=== PATIENT | female | born 1970 | race Hispanic/Latino ===

== ENCOUNTER 2018-09-28 17:06 | Emergency (ER) | payer OTHER ==
--- NOTE | 2018-09-28 17:57 | Emergency Department Report ---
Blank Doc - Documentation Documentation: 48 y o female presents cc of left shoulder to arm pain x couple of days states hasnt taken her BP meds for a while and went to [facility] today and noticed it was high unsure if pain is related to sleeping on it or htn related denies chestpain hx of stage 2 CKD
--- NOTE | 2018-09-28 19:07 | XRay Report ---
PROCEDURE: XR CHEST ROUTINE 2V TECHNIQUE: PA and lateral chest radiographs were obtained. HISTORY: cp COMPARISONS: None. FINDINGS: Heart: Normal. Mediastinum/Vessels: Normal. Lungs/Pleural space: Normal. Bony thorax: No acute osseous abnormality. IMPRESSION: Normal examination. This document is electronically signed by Chase Robles MD., September 28 2018 07:05:10 PM ET
[2018-09-28 20:00] LABS: Basophils % (Auto) 0.5 % (0.0-1.8); Eosinophils # (Auto) 0.4 K/mm3 (0.0-0.4); Eosinophils % (Auto) 4.4 % (0.0-4.3); Lymphocytes # (Auto) 2.6 K/mm3 (1.2-5.4); Lymphocytes % (Auto) 29.3 % (13.4-35.0); Mean Corpuscular HGB Conc 37 % (30-34); Mean Corpuscular Volume 96 fl (79-97); Monocytes # (Auto) 0.6 K/mm3 (0.0-0.8); Monocytes % (Auto) 7.2 % (0.0-7.3); Platelet Count 250 K/mm3 (140-440); Red Blood Count 4.28 M/mm3 (3.65-5.03); Red Cell Distribution Width 12.8 % (13.2-15.2)
[2018-09-28] MEDS ORDERED: CATAPRES PO ONE ×2 (20:10→21:04)
[2018-09-28 20:12] LABS: BUN/Creatinine Ratio 17; Blood Urea Nitrogen 12 mg/dL (7-17); Calcium 9.5 mg/dL (8.4-10.2); Hemolysis Index 2
[2018-09-28 20:13] LABS: Hematocrit 41.2 % (30.3-42.9); Hemoglobin 15.1 gm/dl (10.1-14.3)
--- NOTE | 2018-09-28 20:22 | Emergency Department Report ---
ED General Adult HPI - General Chief complaint: High BP Stated complaint: HTN Time Seen by Provider: 09/28/18 17:55 Source: patient Mode of arrival: Ambulatory Limitations: No Limitations - History of Present Illness Initial comments: This is a 38-year-old female nontoxic, well nourished in appearance, no acute signs of distress presents to the ED with c/o o acute on chronic intermittent right foot pain from RA as well as hypertension medication refill. Patient takes losartan/HCTZ and meloxicam. The patient denies any headache, stiff neck, nausea, vomiting, chest pain, shortness of breath, numbness, tingling, neck pain. The patient denies any allergies. Denies any trauma. -: days(s) Radiation: non-radiation Severity scale (0 -10): 3 Quality: aching Consistency: constant Improves with: none Worsens with: none Associated Symptoms: denies: confusion, chest pain, cough, diaphoresis, fever/chills, headaches, loss of appetite, malaise, nausea/vomiting, rash, seizure, shortness of breath, syncope, weakness Treatments Prior to Arrival: none - Related Data Previous Rx's Medication Instructions Recorded Last Taken Type HYDROcodone/APAP 5-325 [[place] 1 each PO Q6HR PRN #20 tablet 11/11/13 Unknown Rx 5/325] Penicillin Vk [Veetids TAB] 500 mg PO QID #40 tablet 11/11/13 Unknown Rx Losartan/Hydrochlorothiazide 1 each PO DAILY #30 tablet 09/28/18 Unknown Rx [Losartan-Hctz 50-12.5 mg Tab] Meloxicam [Mobic] 15 mg PO Q8H PRN #10 tablet 09/28/18 Unknown Rx Allergies Allergy/AdvReac Type Severity Reaction Status Date / Time No Known Allergies Allergy Unverified 11/11/13 15:42 ED Review of Systems ROS: Stated complaint: HTN Other details as noted in HPI Constitutional: denies: chills, fever Eyes: denies: eye pain, eye discharge, vision change ENT: denies: ear pain, throat pain Respiratory: denies: cough, shortness of breath, wheezing Cardiovascular: denies: chest pain, palpitations Endocrine: no symptoms reported Gastrointestinal: denies: abdominal pain, nausea, diarrhea Genitourinary: denies: urgency, dysuria, discharge Musculoskeletal: arthralgia. denies: back pain, joint swelling Skin: denies: rash, lesions Neurological: denies: headache, weakness, paresthesias Psychiatric: denies: anxiety, depression Hematological/Lymphatic: denies: easy bleeding, easy bruising ED Past Medical Hx - Past Medical History Previous Medical History?: Yes Hx Hypertension: Yes Hx Deep Vein Thrombosis: Yes (IVC filter) Hx Renal Disease: Yes (Stage 2) Hx Arthritis: Yes Additional medical history: RA - Surgical History Past Surgical History?: Yes Additional Surgical History: IVC filter. elbow surgery - Social History Smoking Status: Former Smoker Substance Use Type: Alcohol - Medications Home Medications: Home Medications Medication Instructions Recorded Confirmed Last Taken Type HYDROcodone/APAP 5-325 [[place] 1 each PO Q6HR PRN #20 tablet 11/11/13 Unknown Rx 5/325] Penicillin Vk [Veetids TAB] 500 mg PO QID #40 tablet 11/11/13 Unknown Rx Losartan/Hydrochlorothiazide 1 each PO DAILY #30 tablet 09/28/18 Unknown Rx [Losartan-Hctz 50-12.5 mg Tab] Meloxicam [Mobic] 15 mg PO Q8H PRN #10 tablet 09/28/18 Unknown Rx ED Physical Exam - General Limitations: No Limitations General appearance: alert, in no apparent distress - Head Head exam: Present: atraumatic, normocephalic - Eye Eye exam: Present: normal appearance - Neck Neck exam: Present: normal inspection, full ROM. Absent: tenderness, meningismus, lymphadenopathy - Respiratory Respiratory exam: Present: normal lung sounds bilaterally. Absent: respiratory distress, wheezes, rales, rhonchi, stridor, chest wall tenderness, accessory muscle use, decreased breath sounds, prolonged expiratory - Cardiovascular Cardiovascular Exam: Present: regular rate, normal rhythm, normal heart sounds. Absent: irregular rhythm, systolic murmur, diastolic murmur, rubs, gallop - Extremities Exam Extremities exam: Present: normal inspection, full ROM, normal capillary refill. Absent: tenderness, joint swelling, calf tenderness - Back Exam Back exam: Present: normal inspection, full ROM - Neurological Exam Neurological exam: Present: alert, oriented X3, normal gait - Psychiatric Psychiatric exam: Present: normal affect, normal mood - Skin Skin exam: Present: warm, dry, intact, normal color. Absent: rash ED Course Vital Signs 09/28/18 09/28/18 17:55 19:29 Temperature 97.5 F L Pulse Rate 57 L 52 L Respiratory 20 Rate Blood Pressure 208/97 Blood Pressure 203/86 [Left] O2 Sat by Pulse 99 Oximetry - Reevaluation(s) Reevaluation #1: 09/28/18 20:21 Patient is speaking in full sentences with no signs of distress noted. ED Medical Decision Making - Lab Data Result diagrams: 09/28/18 19:31 09/28/18 19:31 - Medical Decision Making This is a 48-year-old female who presents with hypertension and arthralgia. Patient is stable and was examined by me. Laboratory are unremarkable. Patient did receive an Norvasc and blood pressure has decreased prior to discharge. Patient was educated to keep a daily diary of blood pressure and presents a primary care doctor. I will refill patient's medication. Patient was instructed to Follow-up with a primary care doctor in 3-5 days or if symptoms worsen and continue return to emergency room as soon as possible. At time of discharge, the patient does not seem toxic or ill in appearance. No acute signs of distress noted. Patient agrees to discharge treatment plan of care. No further questions noted by the patient. Critical care attestation.: If time is entered above; I have spent that time in minutes in the direct care of this critically ill patient, excluding procedure time. ED Disposition Clinical Impression: Hypertension Qualifiers: Hypertension type: unspecified Qualified Code(s): I10 - Essential (primary) hyp ertension Arthralgia Qualifiers: Joint pain location: unspecified Qualified Code(s): M25.50 - Pain in unspecified joint Disposition: DC-01 TO HOME OR SELFCARE Is pt being admited?: No Does the pt Need Aspirin: No Condition: Stable Instructions: Hypertension (ED) Additional Instructions: Follow-up with a primary care doctor in 3-5 days or if symptoms worsen and c ontinue return to emergency room as soon as possible. Prescriptions: Losartan/Hydrochlorothiazide [Losartan-Hctz 50-12.5 mg Tab] 1 each PO DAILY #30 tablet Meloxicam [Mobic] 15 mg PO Q8H PRN #10 tablet PRN Reason: Pain , Severe (7-10) Referrals: PRIMARY MD ABAD [Referring] - 3-5 Days ELLIE LYONS MD [Staff Physician] - 3-5 Days [facility] [place] [Outside] - 3-5 Days [facility] [Outside] - 3-5 Days
[2018-09-28 22:19] VITALS: BP 175/77
== END 2018-09-28 22:30 | disposition home or self-care (01) ==
LOC: ED 17:06
DX: I12.9 Hypertensive chronic kidney disease with stage 1 through stage 4 chronic kidney disease, or unspecified chronic kidney disease (principal); N18.2 Chronic kidney disease, stage 2 (mild); M10.071 Idiopathic gout, right ankle and foot; G89.29 Other chronic pain; Z76.0 Encounter for issue of repeat prescription; Z87.891 Personal history of nicotine dependence; Z79.899 Other long term (current) drug therapy
CPT/HCPCS: 36415; 71046; 80048; 84484; 85025; 99284